=== PATIENT | female | born 1980 | race Caucasian/White ===

== ENCOUNTER → 2025-03-22 | Day surgery (SDC) | payer MEDICAID ==
[~2025-03-22] VITALS: Ht 160 cm; Wt 81.6 kg
[~2025-03-22] MED LIST: BUPIVACAINE HCL/PF 0.5% (5MG/ML) 10ML ONE; CEFAZOLIN SODIUM 1000MG/VIAL ONE; LACTATED RINGERS 1,000 ML IV SCH; METOCLOPRAMIDE HCL 10MG/2ML VIAL ONE; ONDANSETRON HCL 4MG/2ML INJ ONE; PROPOFOL 200MG/20ML VIAL IV ONE; ROCURONIUM BROMIDE 10MG/ML VIAL 5ML IV ONE; SKIN ADHESIVE 0.7 GM EA TOP ONE
[2025-03-22 07:21] LABS: UCG KIT EXPIRATION DATE 4-8-27; UCG KIT LOT# 0000994099; UCG SCREEN NEGATIVE
== END | disposition home or self-care (01) ==
LOC: OR 06:25
PROVIDERS: ATTEND Surgery
DX: K80.20 Calculus of gallbladder without cholecystitis without obstruction (principal); Z53.8 Procedure and treatment not carried out for other reasons; Z98.890 Other specified postprocedural states
CPT/HCPCS: 81025; J0665; J0690; J2765; J2405; J2704; J3490

== ENCOUNTER → 2025-04-05 | Day surgery (SDC) | payer MEDICAID ==
[~2025-04-05] VITALS: Ht 160 cm; Wt 78.5 kg
[~2025-04-05] MED LIST changes: +ACETAMINOPHEN 1000MG/100ML 100 ML IV ONE; +ALBUTEROL (0.5%) 2.5MG/0.5ML NEB HHN ONE; +DEXAMETHASONE 4MG/ML 1ML VIAL ONE; +FAMOTIDINE 20MG/2ML VIAL IV ONE; +FENTANYL CITRATE/PF 50MCG/ML 2ML VIAL ONE; +HYDRALAZINE 20MG/ML VIAL IV PRN; +HYDROMORPHONE HCL/PF 1MG/ML INJ IV PRN; +LABETALOL 5MG/ML 4ML INJ IV PRN; -LACTATED RINGERS 1,000 ML IV SCH; -METOCLOPRAMIDE HCL 10MG/2ML VIAL ONE
[2025-04-05 06:21] LABS: UCG SCREEN NEGATIVE
[2025-04-05] MEDS: LACTATED RINGERS 1,000 ML IV SCH (08:38)
[2025-04-05] MEDS: ONDANSETRON HCL 4MG/2ML INJ IV PRN (09:40)
[2025-04-05 09:41] VITALS: BP 118/67; PULSE 54; RESP 15
[2025-04-05] MEDS: FENTANYL CITRATE/PF 50MCG/ML 2ML VIAL IV PRN (09:41)
== END | disposition home or self-care (01) ==
LOC: OR 05:48
PROVIDERS: ATTEND Surgery
DX: K80.10 Calculus of gallbladder with chronic cholecystitis without obstruction (principal); Z79.899 Other long term (current) drug therapy; Z98.890 Other specified postprocedural states
CPT/HCPCS: 47562; 88304; 81025; J3010; J0665; J0690; J1100; J1308; J2405; J2704; J3490; J7030; J0131